=== PATIENT | female | born 1950 | race American Indian/Alaskan Native ===

== ENCOUNTER 2019-08-10 18:06 | Inpatient (IN) | payer MEDICARE ==
--- NOTE | 2019-08-10 18:48 | Event Note ---
Date of service: 08/10/19 Face to Face: 68-year-old female, not known to this provider previously, history of polio, chronic bilateral lower extremity debility, presented with complaint of headache, which she has difficulty qualifying and describing, reported left arm weakness. Patient thinks her left arm weakness started at 12:00 PM yesterday. She is not sure. The patient is a poor historian. The patient does have some demonstrable left arm weakness. Patient is not a TPA candidate as she presents more than 4.5 hours after symptom onset. The patient does not candidate for emergent endovascular intervention as she presents more than 24 hours after symptom onset. Plan is to treat her symptoms, obtain basic screening laboratory studies, work patient up for stroke, evaluate for toxic metabolic infectious etiology, and admit to the medical service. Vital Signs 08/10/19 08/10/19 08/10/19 18:16 18:30 18:31 Temperature 98.5 F Pulse Rate 74 74 Respiratory 20 18 Rate Blood Pressure 186/79 182/85 Blood Pressure [Left] O2 Sat by Pulse 100 98 97 Oximetry 08/10/19 18:35 Temperature 98.5 F Pulse Rate 74 Respiratory 20 Rate Blood Pressure Blood Pressure 186/79 [Left] O2 Sat by Pulse 98 Oximetry
--- NOTE | 2019-08-10 19:11 | Emergency Department Report ---
ED Neuro Deficit HPI - General Chief Complaint: High BP Stated Complaint: HEADACHE Source: patient, family Mode of arrival: Stretcher Limitations: No Limitations - History of Present Illness Initial Comments: Patient is a 68-year-old -[place]aur[place] female with a history of poliomyelitis with resultant bilateral lower extremity deformity and weakness, and who uses a wheelchair to get around presents to the ED with complaint of acute onset persistence severe headache, left arm weakness, right-sided facial droop and numbness and elevated blood pressure for 24 hours. Patient states that she initially noticed that she was unable to lift her left upper extremity because of weakness and thereafter she was told by her neighbor's that "my face looked funny and deformed". Patient states that she was told that she was smiling when in isn't she knows she was not smiling. Patient states these symptoms have been persistent since then. Patient denies nausea, vomiting, chest pain, shortness of breath, dizziness, fever, chills, cough, speech changes, vision loss, urinary or bowel incontinence, dysphagia, dysphonia, abdominal pain, syncope, seizures, fall or loss of consciousness. Patient states that all these symptoms are new in office 24 hours. -: Sudden, hour(s) (>24) Location: right face (facial droop and numbness), left arm (weakness, unable to lift the left upper extremity) Presenting Symptoms: Present: Sudden, Severe Headache, Facial Droop/Numbness (right sided) History of same: No Place: home Severity: severe Quality: weak, numb, tingling, constant Improves With: none Worsens With: none On Anticoagulants: No Context: sudden onset Associated Symptoms: denies other symptoms, headaches. denies: confusion, chest pain, cough, diaphoresis, fever/chills, loss of appetite, malise, nausea/vomiting, vertigo, seizures, shortness of breath, syncope, weakness Treatments Prior to Arrival: none - Related Data Home Medications: Home Medications Medication Instructions Recorded Confirmed Last Taken Acetaminophen [Tylenol] 2 tab PO Q4HR PRN 08/10/19 08/10/19 Unknown Atorvastatin Calcium 20 mg PO HS 08/10/19 08/10/19 Unknown Diclofenac Sodium [Diclo Gel] 2 gram TRANSDERMA QID 08/10/19 08/10/19 Unknown Docusate Sodium [Colace CAP] 1 tab PO DAILY PRN 08/10/19 08/10/19 Unknown Fluticasone [Flonase] 1 spray INTRANASAL DAILY 08/10/19 08/10/19 Unknown Hydralazine HCl 50 mg PO Q12HR 08/10/19 08/10/19 Unknown Losartan Potassium 100 mg PO DAILY 08/10/19 08/10/19 Unknown Melatonin [Melatonin 10MG CAP] 10 mg PO HS PRN 08/10/19 08/10/19 Unknown Metoprolol [Lopressor] 25 mg PO Q12HR 08/10/19 08/10/19 Unknown NIFEdipine [Nifedipine ER] 1 tab PO HS 08/10/19 08/10/19 Unknown Oxybutynin [Ditropan] 5 mg PO DAILY 08/10/19 08/10/19 Unknown Pantoprazole Sodium [Protonix] 40 mg PO DAILY 08/10/19 08/10/19 Unknown Polyethylene Glycol 3350 [Miralax 17 gm PO DAILY 08/10/19 08/10/19 Unknown 3350] Sennosides/Docusate Sodium [Senna 8.6 mg PO DAILY 08/10/19 08/10/19 Unknown Plus Tablet] Thiamine [Vitamin B-1] 1 tab PO DAILY 08/10/19 08/10/19 Unknown cloNIDine [Catapres] 0.1 mg PO Q8HR PRN 08/10/19 08/10/19 Unknown traMADol [Ultram] 50 mg PO Q6HR PRN 08/10/19 08/10/19 Unknown Allergies/Adverse Reactions: Allergies Allergy/AdvReac Type Severity Reaction Status Date / Time No Known Allergies Allergy Unverified 08/10/19 18:23 ED Review of Systems ROS: Stated complaint: HEADACHE Other details as noted in HPI Constitutional: malaise, weakness. denies: chills, fever Eyes: denies: eye pain, eye discharge, vision change ENT: other (right facial droop and numbness). denies: ear pain, throat pain Respiratory: denies: cough, shortness of breath, wheezing Cardiovascular: denies: chest pain, palpitations, dyspnea on exertion, edema, syncope, paroxysmal nocturnal dyspnea Endocrine: no symptoms reported. denies: excessive sweating, flushing, intolerance to cold, intolerance to heat Gastrointestinal: denies: abdominal pain, nausea, vomiting, diarrhea, hematochezia Genitourinary: denies: urgency, dysuria, discharge Musculoskeletal: denies: back pain, joint swelling, arthralgia Skin: denies: rash, lesions Neurological: headache, weakness (left upper extremity), numbness (right facial droop and numbness), abnormal gait (Baseline chronic bilateral lower extremity weakness and deformity from chronic poliomyelitis). denies: paresthesias, confusion Psychiatric: denies: anxiety, depression Hematological/Lymphatic: denies: easy bleeding, easy bruising ED Past Medical Hx - Past Medical History Previous Medical History?: Yes Hx Hypertension: Yes Hx Diabetes: Yes Additional medical history: Poliomyelitis, resultant bilateral lower extremity weakness and deformity - Social History Smoking Status: Never Smoker Substance Use Type: None - Medications Home Medications: Home Medications Medication Instructions Recorded Confirmed Last Taken Type Acetaminophen [Tylenol] 2 tab PO Q4HR PRN 08/10/19 08/10/19 Unknown History Atorvastatin Calcium 20 mg PO HS 08/10/19 08/10/19 Unknown History Diclofenac Sodium [Diclo Gel] 2 gram TRANSDERMA QID 08/10/19 08/10/19 Unknown History Docusate Sodium [Colace CAP] 1 tab PO DAILY PRN 08/10/19 08/10/19 Unknown History Fluticasone [Flonase] 1 spray INTRANASAL DAILY 08/10/19 08/10/19 Unknown History Hydralazine HCl 50 mg PO Q12HR 08/10/19 08/10/19 Unknown History Losartan Potassium 100 mg PO DAILY 08/10/19 08/10/19 Unknown History Melatonin [Melatonin 10MG CAP] 10 mg PO HS PRN 08/10/19 08/10/19 Unknown History Metoprolol [Lopressor] 25 mg PO Q12HR 08/10/19 08/10/19 Unknown History NIFEdipine [Nifedipine ER] 1 tab PO HS 08/10/19 08/10/19 Unknown History Oxybutynin [Ditropan] 5 mg PO DAILY 08/10/19 08/10/19 Unknown History Pantoprazole Sodium [Protonix] 40 mg PO DAILY 08/10/19 08/10/19 Unknown History Polyethylene Glycol 3350 [Miralax 17 gm PO DAILY 08/10/19 08/10/19 Unknown History 3350] Sennosides/Docusate Sodium [Senna 8.6 mg PO DAILY 08/10/19 08/10/19 Unknown History Plus Tablet] Thiamine [Vitamin B-1] 1 tab PO DAILY 08/10/19 08/10/19 Unknown History cloNIDine [Catapres] 0.1 mg PO Q8HR PRN 08/10/19 08/10/19 Unknown History traMADol [Ultram] 50 mg PO Q6HR PRN 08/10/19 08/10/19 Unknown History ED Neuro Physical Exam - General Limitations: No Limitations General appearance: alert, in no apparent distress Suspected Stroke: Yes - Head Head exam: Present: atraumatic, normocephalic, normal inspection - Eye Eye exam: Present: normal appearance, PERRL, EOMI Pupils: Present: normal accommodation - ENT ENT exam: Present: normal exam, normal orophraynx, mucous membranes moist, TM's normal bilaterally, normal external ear exam, other (right facial droop with facial expression) - Neck Neck exam: Present: normal inspection, full ROM. Absent: meningismus, thyromegaly - Respiratory Respiratory exam: Present: normal lung sounds bilaterally. Absent: respiratory distress, wheezes, rales, chest wall tenderness, accessory muscle use, decreased breath sounds - Cardiovascular Cardiovascular Exam: Present: regular rate, normal rhythm, normal heart sounds. Absent: systolic murmur, diastolic murmur, rubs, gallop - GI/Abdominal GI/Abdominal exam: Present: soft, normal bowel sounds. Absent: tenderness, hyperactive bowel sounds - Extremities Exam Extremities exam: Present: normal inspection, tenderness, normal capillary refill, other (Left upper extremity weakness with tenderness) - Back Exam Back exam: Present: normal inspection, full ROM - Neurological Exam Neurological exam: Present: alert, oriented X3, CN II-XII intact (except for right facial droop ), other (Gait and reflexes not tested due to chronic baseline bilateral lower extremity weakness due to chronic poliomyelitis;) - NIHSS Assessment Interval: 24 hours post onset of symptoms +-20 minutes 1a. Level of Consciousness: alert/keenly responsive 1b. LOC Questions: answers both correctly 1c. LOC Commands: performs tasks correctly 2. Best Gaze: normal 3. Visual: no visual loss 4. Facial Palsy: partial paralysis 5b. Motor Arm Right: no drift 5a. Motor Arm Left: no gravity effort 6a. Motor Leg Left: no movement (Baseline chronic leg weakness from poliomyelitis) 6b. Motor Leg Right: no movement (Baseline chronic leg weakness from poliomyelitis) 7. Limb Ataxia: present 2 limbs (Bilateral Lower extremity, chronic due to Poliomyelitis) 8. Sensory: normal 9. Best Language: no aphasia 10. Dysarthria: normal 11. Extinction/Inattention: no abnormality Total Score: 15 Stroke Severity: Moderate Stroke - Psychiatric Psychiatric exam: Present: normal affect, normal mood - Skin Skin exam: Present: warm, dry, intact, normal color. Absent: rash ED Course Vital Signs 08/10/19 08/10/19 08/10/19 18:16 18:30 18:31 Temperature 98.5 F Pulse Rate 74 74 Respiratory 20 18 Rate Blood Pressure 186/79 182/85 Blood Pressure [Left] O2 Sat by Pulse 100 98 97 Oximetry 08/10/19 08/10/19 08/10/19 18:35 19:01 19:42 Temperature 98.5 F 98.2 F Pulse Rate 74 82 58 L Respiratory 20 22 16 Rate Blood Pressure 189/79 Blood Pressure 186/79 172/69 [Left] O2 Sat by Pulse 98 96 100 Oximetry 08/10/19 08/10/19 08/10/19 20:01 20:24 21:00 Temperature Pulse Rate 59 L 66 Respiratory 14 16 19 Rate Blood Pressure 154/46 156/67 Blood Pressure [Left] O2 Sat by Pulse 97 98 Oximetry 08/10/19 21:24 Temperature Pulse Rate Respiratory 16 Rate Blood Pressure Blood Pressure [Left] O2 Sat by Pulse Oximetry - Reevaluation(s) Reevaluation #1: 08/10/19 22:16 This is a 68-year-old -[place] female with a history of chronic poliomyelitis resulting in bilateral lower extremity weakness and hypertension who presented to the ED with right-facial droop and tingling with left arm weakness follow-up 24 hours. In the ED, patient is alert and oriented 3, and is not in distress but hypertensive in triage. Patient was worked up for stroke this of the presentation. Asians case was discussed with the ED attending physician Dr. Cooper who also evaluated the patient and agree with the plan of care. The patient's case was discussed with the neurologist production leader Dr. Cj Valle was able to the patient and recommended that since the patient is >24 hours since last well, she is outside the window for tPA, therefore not a tPA candidate. He recommended admission for further workup of stroke including MRI. I discussed the patient's case with the hospitalist physician production leader Dr. Goodwin who admitted the patient to the hospital. 08/10/19 22:21 08/10/19 22:23 08/10/19 22:42 - Lab Data Result diagrams: 08/10/19 21:12 08/10/19 21:12 Lab Results 08/10/19 08/10/19 08/10/19 Range/Units 19:31 19:36 21:12 WBC 4.9 (4.5-11.0) K/mm3 RBC 3.67 (3.65-5.03) M/mm3 Hgb 10.6 (10.1-14.3) gm/dl Hct 32.6 (30.3-42.9) % MCV 89 (79-97) fl MCH 29 (28-32) pg MCHC 32 (30-34) % RDW 13.9 (13.2-15.2) % Plt Count 219 (140-440) K/mm3 Lymph % (Auto) 34.2 (13.4-35.0) % [place] % (Auto) 11.4 H (0.0-7.3) % Eos % (Auto) 5.3 H (0.0-4.3) % Baso % (Auto) 2.1 H (0.0-1.8) % Lymph # 1.7 (1.2-5.4) K/mm3 [place]atte # 0.6 (0.0-0.8) K/mm3 Eos # 0.3 (0.0-0.4) K/mm3 Baso # 0.1 (0.0-0.1) K/mm3 Seg Neutrophils % 47.0 (40.0-70.0) % Seg Neutrophils # 2.3 (1.8-7.7) K/mm3 Sodium (137-145) mmol/L Potassium (3.6-5.0) mmol/L Chloride (98-107) mmol/L Carbon Dioxide (22-30) mmol/L Anion Gap mmol/L BUN (7-17) mg/dL Creatinine (0.7-1.2) mg/dL Estimated GFR ml/min BUN/Creatinine Ratio % Glucose (65-100) mg/dL POC Glucose 118 H (70-105) Calcium (8.4-10.2) mg/dL Magnesium (1.7-2.3) mg/dL Total Bilirubin (0.1-1.2) mg/dL AST (5-40) units/L ALT (7-56) units/L Alkaline Phosphatase (35-129) units/L CK-MB (CK-2) (0.0-4.0) ng/mL Troponin T (0.00-0.029) ng/mL Total Protein (6.3-8.2) g/dL Albumin (3.9-5) g/dL Albumin/Globulin Ratio % TSH (0.270-4.200) mlU/mL Urine Color Yellow (Yellow) Urine Turbidity Clear (Clear) Urine pH 5.0 (5.0-7.0) Ur Specific [place] 1.014 (1.003-1.030) Urine Protein <15 mg/dl (Negative) mg/dL Urine Glucose (UA) Neg (Negative) mg/dL Urine Ketones Neg (Negative) mg/dL Urine Blood Neg (Negative) Urine Nitrite Neg (Negative) Urine Bilirubin Neg (Negative) Urine Urobilinogen < 2.0 (<2.0) mg/dL Ur Leukocyte Esterase Neg (Negative) Urine WBC (Auto) < 1.0 (0.0-6.0) /HPF Urine RBC (Auto) 3.0 (0.0-6.0) /HPF U Epithel Cells (Auto) 2.0 (0-13.0) /HPF Urine Mucus Few /HPF Acetaminophen (10.0-30.0) ug/mL 08/10/19 08/10/19 08/10/19 Range/Units 21:12 21:12 21:12 WBC (4.5-11.0) K/mm3 RBC (3.65-5.03) M/mm3 Hgb (10.1-14.3) gm/dl Hct (30.3-42.9) % MCV (79-97) fl MCH (28-32) pg MCHC (30-34) % RDW (13.2-15.2) % Plt Count (140-440) K/mm3 Lymph % (Auto) (13.4-35.0) % [place] % (Auto) (0.0-7.3) % Eos % (Auto) (0.0-4.3) % Baso % (Auto) (0.0-1.8) % Lymph # (1.2-5.4) K/mm3 [place] # (0.0-0.8) K/mm3 Eos # (0.0-0.4) K/mm3 Baso # (0.0-0.1) K/mm3 Seg Neutrophils % (40.0-70.0) % Seg Neutrophils # (1.8-7.7) K/mm3 Sodium 143 (137-145) mmol/L Potassium 4.1 (3.6-5.0) mmol/L Chloride 109.1 H (98-107) mmol/L Carbon Dioxide 20 L (22-30) mmol/L Anion Gap 18 mmol/L BUN 23 H (7-17) mg/dL Creatinine 0.5 L (0.7-1.2) mg/dL Estimated GFR > 60 ml/min BUN/Creatinine Ratio 46 % Glucose 119 H (65-100) mg/dL POC Glucose (70-105) Calcium 8.7 (8.4-10.2) mg/dL Magnesium 2.10 (1.7-2.3) mg/dL Total Bilirubin 0.20 (0.1-1.2) mg/dL AST 18 (5-40) units/L ALT 13 (7-56) units/L Alkaline Phosphatase 82 (35-129) units/L CK-MB (CK-2) 2.4 (0.0-4.0) ng/mL Troponin T < 0.010 (0.00-0.029) ng/mL Total Protein 6.0 L (6.3-8.2) g/dL Albumin 3.6 L (3.9-5) g/dL Albumin/Globulin Ratio 1.5 % TSH 1.850 (0.270-4.200) mlU/mL Urine Color (Yellow) Urine Turbidity (Clear) Urine pH (5.0-7.0) Ur Specific [place] (1.003-1.030) Urine Protein (Negative) mg/dL Urine Glucose (UA) (Negative) mg/dL Urine Ketones (Negative) mg/dL Urine Blood (Negative) Urine Nitrite (Negative) Urine Bilirubin (Negative) Urine Urobilinogen (<2.0) mg/dL Ur Leukocyte Esterase (Negative) Urine WBC (Auto) (0.0-6.0) /HPF Urine RBC (Auto) (0.0-6.0) /HPF U Epithel Cells (Auto) (0-13.0) /HPF Urine Mucus /HPF Acetaminophen < 5.0 L (10.0-30.0) ug/mL - Radiology Data Radiology results: report reviewed, image reviewed Findings [facility] [address] [place] [address] XRay Report Signed Patient: CLAYTON VORA MR#: [id number] : 1950 Acct:[id number] Age/Sex: 68 / F ADM Date: 08/10/19 Loc: ED Attending Dr: Ordering Physician: YURY COOPER MD Date of Service: 08/10/19 Procedure(s): XR chest 1V ap Accession Number(s): [id number] cc: YURY COOPER MD Fluoro Time In Minutes: CHEST 1 VIEW 08/10/2019 6:55 PM INDICATION / CLINICAL INFORMATION: cva weakness. COMPARISON: None available. FINDINGS: SUPPORT DEVICES: None. HEART / MEDIASTINUM: Heart is upper normal size for AP portable technique. LUNGS / PLEURA: Marked elevation of the right hemidiaphragm with right lung base atelectasis. Upper right lung and left lung are essentially clear. No pneumothorax. ADDITIONAL FINDINGS: No significant additional findings. IMPRESSION: 1. Elevated right hemidiaphragm. No acute findings. Signer Name: Kade Zhong MD Signed: 08/10/2019 7:21 PM Workstation Name: [id number] Transcribed By: DT Dictated By: Marquis Zhong MD Electronically Authenticated By: Marquis Zhong MD Signed Date/Time: 08/10/191920 DD/ 19 TD/TT: Findings [facility] [address] [place] [id number] Cat Scan Report Signed Patient: CLAYTON VORA MR#: [id number] : 1950 Acct:[id number] Age/Sex: 68 / F ADM Date: 08/10/19 Loc: ED Attending Dr: Ordering Physician: YURY COOPER MD Date of Service: 08/10/19 Procedure(s): CT head/brain wo con Accession Number(s): [id number] cc: YURY COOPER MD Nonenhanced CT scan of the brain: INDICATION / CLINICAL INFORMATION: 68 years Female; HEADACHE, LT FACIAL DROOPING PER FAMILY. TECHNIQUE: Routine CT head without contrast. All CT scans at this location are performed using CT dose reduction for ALARA by means of automated exposure control. COMPARISON: None. FINDINGS: BRAIN / INTRACRANIAL CONTENTS: No acute hemorrhage, mass effect, midline shift, hydrocephalus, or acute, large territorial infarct. Chronic lacune is seen in the right caudate head and in the right thalamus. Lateral ventricles and third ventricle are generous, disproportionate to high convexity cortical sulci suggesting deep central involution. Temporal horn tips are dilated suggesting moderate volume loss in the medial temporal lobes. Dense dystrophic calcification is seen in the sylvian fissure laterally on the left side. In addition, multiple punctate areas of calcifications are seen in the subar achnoid space bilaterally. Though nonspecific, this could be calcified emboli. If there is history of trauma in the ischemic areas, neurocysticercosis is another consideration. No significant white matter abnormality. Volume loss is seen in the cerebellar vermis. Patchy areas such cerebral atrophy also seen. CRANIOCERVICAL JUNCTION: No significant abnormality. ORBITS: No significant abnormality of visualized orbits. SINUSES / MASTOIDS: No significant abnormality of the visualized paranasal sinuses or mastoid air cells. ADDITIONAL FINDINGS: None. IMPRESSION: I do not see CT findings to suggest acute parenchymal lesion However, densely calcified lesion is seen in the lateral aspect of left the sylvian fissure posteriorly. In addition, multiple focal areas of calcification seen in the subarachnoid space Calcified emboli Signer Name: Ronak Hamlin MD Signed: 08/10/2019 7:41 PM Workstation Name: [id number] Transcribed By: BS Dictated By: Ronak Alcantar MD Electronically Authenticated By: Ronak Alcantar MD Signed Date/Time: 08/10/191940 DD/ 22 TD/TT: - Medical Decision Making This is a 68-year-old -[place]aur[place] female with a history of chronic poliomyelitis resulting in bilateral lower extremity weakness and hypertension who presented to the ED with right-facial droop and tingling with left arm weakness follow-up 24 hours. In the ED, patient is alert and oriented 3, and is not in distress but hypertensive in triage. Patient was worked up for stroke this of the presentation. Asians case was discussed with the ED attending physician Dr. Cooper who also evaluated the patient and agree with the plan of care. The patient's case was discussed with the neurologist production leader Dr. Cj Valle was able to the patient and recommended that since the patient is >24 hours since last well, she is outside the window for tPA, therefore not a tPA candidate. He recommended admission for further workup of stroke including MRI. I discussed the patient's case with the hospitalist physician production leader Dr. Goodwin who admitted the patient to the hospital. 08/10/19 22:21 - Differential Diagnosis Suspected CVA; Hypertensive emergency; headache - Core Measures AMI Core Measures Followed: No Measure Exclusions: not indicated Door to CT Read: <90 minutes Door to CXR Read: < 90 minutes Door to Neurologist Consult: <90 min Door to Thrombolytics, if given: Not indicated - Thrombolytic Inclusion/Exclusion Thrombolytic Exclusion Criteria: Symptom Onset > 3 Hours Thrombolytic Inclusion Criteria: Negative CT Scan for ICH, Age 18 or Older, Glucose of 50-400mg/dl Thrombolytic Contraindications: Patient on Anticoagulants Critical care attestation.: If time is entered above; I have spent that time in minutes in the direct care of this critically ill patient, excluding procedure time. ED Disposition Clinical Impression: Suspected cerebrovascular accident (CVA), Hypertensive emergency Disposition: OP ADMIT IP TO THIS HOSP Is pt being admited?: Yes Does the pt Need Aspirin: Yes Condition: Stable Instructions: Hypertension (ED) Referrals: ROBER TAN MD [Primary Care Provider] - 3-5 Days Time of Disposition: 22:45 Print Language: MALAGASY
--- NOTE | 2019-08-10 19:25 | XRay Report ---
CHEST 1 VIEW 08/10/2019 6:55 PM INDICATION / CLINICAL INFORMATION: cva weakness. COMPARISON: None available. FINDINGS: SUPPORT DEVICES: None. HEART / MEDIASTINUM: Heart is upper normal size for AP portable technique. LUNGS / PLEURA: Marked elevation of the right hemidiaphragm with right lung base atelectasis. Upper r ight lung and left lung are essentially clear. No pneumothorax. ADDITIONAL FINDINGS: No significant additional findings. IMPRESSION: 1. Elevated right hemidiaphragm. No acute findings. Signer Name: Kade Zhong MD Signed: 08/10/2019 7:21 PM Workstation Name: [id number]
[2019-08-10] MEDS ORDERED: REGLAN IV ONE (19:32)
[2019-08-10] MEDS ORDERED: TYLENOL PO ONE (19:32)
--- NOTE | 2019-08-10 19:45 | Cat Scan Report ---
Nonenhanced CT scan of the brain: INDICATION / CLINICAL INFORMATION: 68 years Female; HEADACHE, LT FACIAL DROOPING PER FAMILY. TECHNIQUE: Routine CT head without contrast. All CT scans at this location are performed using CT dos e reduction for ALARA by means of automated exposure control. COMPARISON: None. FINDINGS: BRAIN / INTRACRANIAL CONTENTS: No acute hemorrhage, mass effect, midline shift, hydrocephalus, or acu te, large territorial infarct. Chronic lacune is seen in the right caudate head and in the right thal amus. Lateral ventricles and third ventricle are generous, disproportionate to high convexity cortica l sulci suggesting deep central involution. Temporal horn tips are dilated suggesting moderate volume loss in the medial temporal lobes. Dense dystrophic calcification is seen in the sylvian fissure laterally on the left side. In addition , multiple punctate areas of calcifications are seen in the subarachnoid space bilaterally. Though no nspecific, this could be calcified emboli. If there is history of trauma in the ischemic areas, neuro cysticercosis is another consideration. No significant white matter abnormality. Volume loss is seen in the cerebellar vermis. Patchy areas such cerebral atrophy also seen. CRANIOCERVICAL JUNCTION: No significant abnormality. ORBITS: No significant abnormality of visualized orbits. SINUSES / MASTOIDS: No significant abnormality of the visualized paranasal sinuses or mastoid air ellen ls. ADDITIONAL FINDINGS: None. IMPRESSION: I do not see CT findings to suggest acute parenchymal lesion However, densely calcified lesion is seen in the lateral aspect of left the sylvian fissure posterior ly. In addition, multiple focal areas of calcification seen in the subarachnoid space Calcified embol i Signer Name: Ronak Hamlin MD Signed: 08/10/2019 7:41 PM Workstation Name: [id number]
[2019-08-10 19:54] LABS: Bilirubin,Urine NEG (Negative); Blood,Urine NEG (Negative); Color,Urine Yellow (Yellow); Mucus,Urine FEW /HPF; Protein,Urine <15 mg/dL mg/dL (Negative); Urobilinogen,Urine < 2.0 mg/dL (<2.0); WBC,Urine < 1.0 /HPF (0.0-6.0)
--- NOTE | 2019-08-10 20:58 | Consultation ---
History of Present Illness Consult date: 08/10/19 Medications and Allergies Allergies Allergy/AdvReac Type Severity Reaction Status Date / Time No Known Allergies Allergy Unverified 08/10/19 18:23 Physical Examination - Vital Signs Vital Signs: Vital Signs Pulse Ox 100 08/10/19 18:16 - Assessment Assessment Interval: Baseline - Level of Consciousness 1a. Level of Consciousness: alert/keenly responsive - LOC Questions 1b. LOC Questions: answers 1 question correctly - LOC Command 1c. LOC Commands: performs tasks correctly - Best Gaze 2. Best Gaze: normal - Visual 3. Visual: no visual loss - Facial Palsy 4. Facial Palsy: unilateral complete paralysis - Motor Arm 5a. Motor Arm Left: some gravity effort 5b. Motor Arm Right: no drift - Motor Leg 6a. Motor Leg Left: no gravity effort 6b. Motor Leg Right: no gravity effort - Limb Ataxia 7. Limb Ataxia: absent - Sensory 8. Sensory: normal - Best Language 9. Best Language: no aphasia - Dysarthria 10. Dysarthria: normal - Extinction and Inattention 11. Extinction/Inattention: no abnormality - Scoring Total Score: 12 Stroke Severity: Moderate Stroke Results - Laboratory Findings Abnormal Lab Findings: Abnormal Labs 08/10/19 19:36 POC Glucose 118 H Assessment and Plan [facility] Consult Services Date of Service 08/10/2019 Impression: 1- history of polio with chronic bilateral leg weakness 2- acute left arm weakness concerning for Acute Ischemic Stroke Recommendations: Patient is not a tPA candidate Head CT did not show any acute hemorrhage. reviewed report (if available) and images Reason: _ last time known well>4.5 hours Patient is not a KHRIS candidate: _ last time known well>24 hours dysphagia screen ASA if no contraindications head of bed flat IV fluids NS Stroke work up with: noncontrast brain MRI, head and neck MRA (or CTA), 2D ECHO, lipid panel, HbA1c (Goal LDL<70, HbA1c<7) Physical Therapy/Occupational Therapy inpatient neurology consultation if available Inpatient stroke evaluation as per Neurology/ Internal Medicine Discussed with ED physician/medical staff Please contact [facility] Navigator to reach me if further quest ions/concerns arise. Reason for Neurology Consult: - History of Present Illness: - Patient is a(n) 68 years old female with history of polio (chronic bilateral leg weakness) presents with acute left arm weakness that started around 12:00 on 08/09/19 Diagnostic Testing: - Head CT: No acute Intracranial abnormality. Review of Systems: Constitutional: Negative except as documented in history of present illness. Eye: Negative except as documented in history of present illness. Ear/Nose/Mouth/Throat: Negative except as documented in history of present illness. Respiratory: Negative except as documented in history of present illness. Cardiovascular: Negative except as documented in history of present illness. Gastrointestinal: Negative except as documented in history of present illness. Musculoskeletal: Negative except as documented in history of present illness. Neurologic: Negative except as documented in history of present illness. Examination: NIHSS documented Medical Decision Making: - Extensive number of diagnosis or management options are considered above. - Extensive amount of complex data reviewed. - High risk of complication and/or morbidity or mortality are associated with differential diagnostic considerations above. - There may be uncertain outcome and increased probability of prolonged functional impairment or high probability of severe prolonged functional impairment associated with some of these differential diagnoses. Medical Data Reviewed: 1.Data reviewed include clinical labs, radiology,Medical Tests; 2.Tests results discussed w/performing or interpreting physician; 3.Obtaining/reviewing old medical records; 4.Obtaining case history from another source; 5.Independent review of image, tracing or specimen. When possible Patient/family were informed the Neurology Consult would happen via TeleHealth consult by way of interactive audio and video telecommunications and consented to receiving care in this manner.
[2019-08-10 21:39] LABS: Basophils # (Auto) 0.1 K/mm3 (0.0-0.1); Basophils % (Auto) 2.1 % (0.0-1.8); Eosinophils # (Auto) 0.3 K/mm3 (0.0-0.4); Eosinophils % (Auto) 5.3 % (0.0-4.3); Hematocrit 32.6 % (30.3-42.9); Hemoglobin 10.6 gm/dl (10.1-14.3); Lymphocytes # (Auto) 1.7 K/mm3 (1.2-5.4); Lymphocytes % (Auto) 34.2 % (13.4-35.0); Mean Corpuscular HGB Conc 32 % (30-34); Mean Corpuscular Volume 89 fl (79-97); Monocytes # (Auto) 0.6 K/mm3 (0.0-0.8); Monocytes % (Auto) 11.4 % (0.0-7.3); Platelet Count 219 K/mm3 (140-440); Red Blood Count 3.67 M/mm3 (3.65-5.03); Red Cell Distribution Width 13.9 % (13.2-15.2)
[2019-08-10 21:55] LABS: Creatine Kinase MB 2.4 ng/mL (0.0-4.0)
[2019-08-10 21:59] LABS: Alanine Aminotransferase 13 units/L (7-56); Albumin 3.6 g/dL (3.9-5); BUN/Creatinine Ratio 46; Blood Urea Nitrogen 23 mg/dL (7-17); Calcium 8.7 mg/dL (8.4-10.2); Hemolysis Index 4
[2019-08-10] MEDS ORDERED: BABY ASPIRIN PO ONE (22:11)
[2019-08-10 22:40] LABS: INR 1.03 (0.87-1.13)
[2019-08-10 22:41] LABS: Partial Thromboplastin Time 29.7 Sec. (24.2-36.6); Thrombin Time 16.6 Sec. (15.1-19.6)
--- NOTE | 2019-08-10 23:16 | History and Physical Report ---
History of Present Illness Date of examination: 08/10/19 History of present illness: 68-year-old woman with a history of hypertension, diabetes, polio with lower extremity deformity, comes emergency room because yesterday she had an occipital headache described as a dull pain which is now better and also complain of her mouth being twisted. She noticed that she developed left arm weakness one week ago eview Of Systems: Constitutional: no weight loss, fever, chills Ears, eyes, nose, mouth and throat: no nasal congestion, no nasal discharge, no sinus pressure, blurry vision, diplopia Neck: No neck pain or rigidity. Cardiovascular: No palpitations, chest pain Respiratory: No shortness of breath, cough Gastrointestinal: No hematochezia, abdominal pain Genitourinary : no dysuria, frequency , hematuria Musculoskeletal: no muscle ache , joint pain Integumentary: no rash, no pruritis Neurological: no parathesias, focal weakness Endocrine: no cold or heat intolerance, no polyuria or polydipsia Hematologic/Lymphatic: no easy bruising, no easy bleeding, no gland swelling Allergic/Immunologic: no urticaria, no angioedema. PAST MEDICAL HISTORY:hypertension, diabetes, polio with lower extremity deformity PAST SURGICAL HISTORY: cholecystectomy, surgery on legs FAMILY HISTORY:hypertension, diabetes SOCIAL HISTORY: Denies tobacco, drugs, alcohol Medications and Allergies Allergies Allergy/AdvReac Type Severity Reaction Status Date / Time No Known Allergies Allergy Verified 08/10/19 23:17 Home Medications Medication Instructions Recorded Confirmed Last Taken Type Acetaminophen [Tylenol] 2 tab PO Q4HR PRN 08/10/19 08/10/19 Unknown History Atorvastatin Calcium 20 mg PO HS 08/10/19 08/10/19 Unknown History Diclofenac Sodium [Diclo Gel] 2 gram TRANSDERMA QID 08/10/19 08/10/19 Unknown History Docusate Sodium [Colace CAP] 1 tab PO DAILY PRN 08/10/19 08/10/19 Unknown History Fluticasone [Flonase] 1 spray INTRANASAL DAILY 08/10/19 08/10/19 Unknown History Hydralazine HCl 50 mg PO Q12HR 08/10/19 08/10/19 Unknown History Losartan Potassium 100 mg PO DAILY 08/10/19 08/10/19 Unknown History Melatonin [Melatonin 10MG CAP] 10 mg PO HS PRN 08/10/19 08/10/19 Unknown History Metoprolol [Lopressor] 25 mg PO Q12HR 08/10/19 08/10/19 Unknown History NIFEdipine [Nifedipine ER] 1 tab PO HS 08/10/19 08/10/19 Unknown History Oxybutynin [Ditropan] 5 mg PO DAILY 08/10/19 08/10/19 Unknown History Pantoprazole Sodium [Protonix] 40 mg PO DAILY 08/10/19 08/10/19 Unknown History Polyethylene Glycol 3350 [Miralax 17 gm PO DAILY 08/10/19 08/10/19 Unknown History 3350] Sennosides/Docusate Sodium [Senna 8.6 mg PO DAILY 08/10/19 08/10/19 Unknown History Plus Tablet] Thiamine [Vitamin B-1] 1 tab PO DAILY 08/10/19 08/10/19 Unknown History cloNIDine [Catapres] 0.1 mg PO Q8HR PRN 08/10/19 08/10/19 Unknown History traMADol [Ultram] 50 mg PO Q6HR PRN 08/10/19 08/10/19 Unknown History Exam - Physical Exam Narrative exam: General Apperance: The patient sitting in bed no acute distress HEENT: Normocephalic, atraumatic. Pupils equally round and reactive to light, extraocular movement intact, and no sclericterus or JVD or thyromegaly or nodule. Neck supple, no carotid bruit, mucous membranes moist, no exudate or erythema Heart: S1-S2, regular is rhythm Lungs: Clear to auscultation bilaterally, breathing comfortable Abdomen: Positive bowel sounds, soft, nontender, nondistended, no organomegaly Extremities: No edema cyanosis clubbing Skin: no rash, nodule, warm and dry Neuro:CN 2 -12 intact, motor LUE 2/5, extremities difficult to assess, deformed, sensory intact, facial droop speech is fluent - Constitutional Vitals: Temp Pulse Resp BP Pulse Ox 98.2 F 66 16 156/67 98 08/10/19 19:42 08/10/19 21:00 08/10/19 21:24 08/10/19 21:00 08/10/19 21:00 Results - Labs CBC & Chem 7: 08/10/19 21:12 08/10/19 21:12 Labs: Abnormal lab results 08/10/19 08/10/19 08/10/19 Range/Units 19:36 21:12 21:12 [place] % (Auto) 11.4 H (0.0-7.3) % Eos % (Auto) 5.3 H (0.0-4.3) % Baso % (Auto) 2.1 H (0.0-1.8) % Chloride 109.1 H (98-107) mmol/L Carbon Dioxide 20 L (22-30) mmol/L BUN 23 H (7-17) mg/dL Creatinine 0.5 L (0.7-1.2) mg/dL Glucose 119 H (65-100) mg/dL POC Glucose 118 H (70-105) Total Protein 6.0 L (6.3-8.2) g/dL Albumin 3.6 L (3.9-5) g/dL Salicylates (2.8-20.0) mg/dL Acetaminophen (10.0-30.0) ug/mL 08/10/19 08/10/19 Range/Units 21:12 21:12 [place] % (Auto) (0.0-7.3) % Eos % (Auto) (0.0-4.3) % Baso % (Auto) (0.0-1.8) % Chloride (98-107) mmol/L Carbon Dioxide (22-30) mmol/L BUN (7-17) mg/dL Creatinine (0.7-1.2) mg/dL Glucose (65-100) mg/dL POC Glucose (70-105) Total Protein (6.3-8.2) g/dL Albumin (3.9-5) g/dL Salicylates < 0.3 L (2.8-20.0) mg/dL Acetaminophen < 5.0 L (10.0-30.0) ug/mL - Imaging and Cardiology Chest x-ray: report reviewed CT Scan - head: report reviewed Assessment and Plan Assessment Acute CVA Hypertension Diabetes Plan Admit to medicine Obtain MRI of the head and neck, echo Doing neuro checks, swallow screen [employer] Supervisor neurology, physical and occupational therapy Start aspirin, statin DVT prophylaxis and IV hydralazine as needed for blood pressure control
[2019-08-11] MEDS ORDERED: DULCOLAX PR PRN (00:27)
[2019-08-11] MEDS ORDERED: SODIUM CHLORIDE FLUSH SYRINGE 10 ML IV PRN (00:27)
[2019-08-11] MEDS ORDERED: MILK OF MAGNESIA PO PRN (00:27)
[2019-08-11] MEDS ORDERED: TYLENOL PO PRN (00:27)
[2019-08-11] MEDS ORDERED: ZOFRAN IV PRN (00:27)
[2019-08-11] MEDS ORDERED: COLACE PO PRN (04:09)
[2019-08-11] MEDS ORDERED: MIRALAX 3350 PO SCH (10:00)
[2019-08-11] MEDS ORDERED: NON-FORMULARY (Pantoprazole Sodium [Protonix] 40 MG) PO SCH (10:00)
[2019-08-11] MEDS ORDERED: SENOKOT S PO SCH (10:00)
--- NOTE | 2019-08-11 15:04 | Progress Note ---
Assessment and Plan Acute CVA, likely Hypertension, uncontrolled Diabetes type 2 h/o polio with b/l LE weakness - monitor at telemetry - Obtain MRI of the head and neck - refused today, rescheduled for tomorrow - 2d echo showed no PFO or reduced EF - cont neuro checks, passed the swallow screen - start on diet - Consulted neurology, physical and occupational therapy - Cont aspirin, statin, resume other home meds, hydralazine iv to keep SBP <180 - DVT prophylaxis with lovenox Brief History: 68-year-old woman with a history of hypertension, diabetes, polio with lower extremity deformity and paralysis on wheel chair, comes emergency room because yesterday she had an occipital headache described as a dull pain which is now be tter and also complain of her mouth being twisted. She noticed that she developed left arm weakness one week ago. Radiological data: Head CT: No acute Intracranial abnormality. Hospitalist Physical exam: GENERAL: elderly AAF lying on bed appeared to be in no discomfort. HEENT: Normocephalic. Atraumatic. No conjunctival congestion or icterus. Patient has moist mucous membranes. NECK: Supple. Trachea midline. CHEST/LUNGS: Clear to auscultated bilaterally, breathing nonlabored. No wheezes crackles or rhonchi. HEART/CARDIOVASCULAR: Regular in rate and rhythm. S1 and S2 positive. ABDOMEN: Abdomen is soft, nontender. Patient has normal bowel sounds. SKIN: There is no rash. Warm and dry. NEURO: LUE weakness. b/l LE paralysis/weakness. Follows command. MUSCULOSKELETAL: No joint effusion or tenderness. EXTRIMITY: No edema, no cyanosis or clubbing. PSYCH: Cooperative. Subjective Date of service: 08/11/19 Interval history: Patient seen and examined. Medical records and medication list reviewed. No acute event overnight noted by the RN. Patient denies any chest pain or difficulty breathing. Patient is tolerating diet. Discussed plan of care at bedside with patient. She refused MRI brain today, neuro eval pending Objective - Constitutional Vitals: Vital Signs - 12hr 08/11/19 08/11/19 08/11/19 05:04 07:42 11:35 Temperature 97.5 F L 97.9 F Pulse Rate 78 62 Respiratory 20 20 18 Rate Blood Pressure 135/66 158/65 Blood Pressure 130/62 [Left] O2 Sat by Pulse 95 100 Oximetry - Labs CBC & Chem 7: 08/10/19 21:12 08/10/19 21:12 Labs: Abnormal lab results 08/10/19 08/10/19 08/10/19 Range/Units 19:36 21:12 21:12 [place] % (Auto) 11.4 H (0.0-7.3) % Eos % (Auto) 5.3 H (0.0-4.3) % Baso % (Auto) 2.1 H (0.0-1.8) % Chloride 109.1 H (98-107) mmol/L Carbon Dioxide 20 L (22-30) mmol/L BUN 23 H (7-17) mg/dL Creatinine 0.5 L (0.7-1.2) mg/dL Glucose 119 H (65-100) mg/dL POC Glucose 118 H (70-105) Total Protein 6.0 L (6.3-8.2) g/dL Albumin 3.6 L (3.9-5) g/dL Salicylates (2.8-20.0) mg/dL Acetaminophen (10.0-30.0) ug/mL 08/10/19 08/10/19 Range/Units 21:12 21:12 [place] % (Auto) (0.0-7.3) % Eos % (Auto) (0.0-4.3) % Baso % (Auto) (0.0-1.8) % Chloride (98-107) mmol/L Carbon Dioxide (22-30) mmol/L BUN (7-17) mg/dL Creatinine (0.7-1.2) mg/dL Glucose (65-100) mg/dL POC Glucose (70-105) Total Protein (6.3-8.2) g/dL Albumin (3.9-5) g/dL Salicylates < 0.3 L (2.8-20.0) mg/dL Acetaminophen < 5.0 L (10.0-30.0) ug/mL
[2019-08-11] MEDS: ASPIRIN PO SCH (18:06)
[2019-08-11] MEDS: DITROPAN PO SCH (18:06)
[2019-08-11] MEDS: VITAMIN B-1 PO SCH (18:06)
[2019-08-11] MEDS: LOVENOX SUB-Q SCH (18:07)
[2019-08-11] MEDS: PROTONIX PO SCH (18:07)
[2019-08-11] MEDS ORDERED: PRAVACHOL PO SCH (22:00)
[2019-08-11] MEDS ORDERED: ATORVASTATIN CALCIUM 20 MG PO SCH (22:00)
[2019-08-12] MEDS: APRESOLINE IV PRN ×2 (05:08→17:20)
[2019-08-12 06:18] LABS: Chol/HDL Ratio 2.67 %
[2019-08-12] MEDS: ASPIRIN PO SCH (09:37)
[2019-08-12] MEDS: LOVENOX SUB-Q SCH (09:37)
[2019-08-12] MEDS: PROTONIX PO SCH (09:38)
[2019-08-12] MEDS: VITAMIN B-1 PO SCH (09:38)
--- NOTE | 2019-08-12 15:22 | Magnetic Resonance Report ---
MRI BRAIN WITHOUT CONTRAST INDICATION / CLINICAL INFORMATION: stroke. TECHNIQUE: Multiplanar, multisequence MR images of the brain were obtained. COMPARISON: None available. FINDINGS: BRAIN / INTRACRANIAL CONTENTS: There are scattered areas of acute infarction involving the right cere bral hemisphere most notably along the border zone vascular distribution. The largest focus is along the right precentral gyrus measuring 2.57 m in greatest transverse dimension. Smaller foci are seen m ore superiorly along the right frontal and parietal subcortical regions. On the FLAIR sequence, there are otherwise a scattered small hyperintense foci of the cerebral white matter most consistent with microvascular angiopathy at. There are old small lacunar infarcts involvi ng the head of the right caudate and right thalamus. There is mild cerebral atrophy with associated p rominence of the ventricular system. No extra-axial fluid collections are identified. CRANIOCERVICAL JUNCTION: No significant abnormality. VASCULAR FLOW-VOIDS: The distal internal carotid arteries and vertebrobasilar system grossly demonstr ate appropriate signal voids. ORBITS: No significant abnormality of visualized orbits. SINUSES / MASTOIDS: No significant abnormality of the visualized paranasal sinuses or mastoid air ellen ls. ADDITIONAL FINDINGS: None. IMPRESSION: 1. There are scattered areas of acute infarction along the right cerebral border zone vascular distri bution as described. The largest focus is along the right precentral gyrus measuring 2.5 cm transvers [place]. Signer Name: Ronen Vazquez MD Signed: 08/12/2019 3:17 PM Workstation Name: [id number]
--- NOTE | 2019-08-12 15:28 | Magnetic Resonance Report ---
MRA head without contrast. CLINICAL HISTORY: Cerebrovascular accident, right-sided weakness FINDINGS: No previous exams available for comparison. The motion significant degrades the image quali ty. However, there is irregularity of the distal internal carotid arteries indicative of underlying a therosclerotic disease. There is no clear evidence of significant stenosis by NASCET criteria. Howeve r, there is a 2-of 3 of millimeter sacculation extending medially near the ophthalmic segment which m ay be exacerbated by the motion artifact. However, the findings may reflect a smaller 2 to 3 mm aneur ysm. There is irregularity of the left MCA trifurcation of vessels also indicative of underlying atheroscl erotic disease with mild narrowing. Additionally, there is irregularity of the P2 segment of the left [employer] with mild to moderate segmental narrowing at. There is mild hypoplasia the distal left vertebral artery. IMPRESSION: The study is limited by motion. However, there is diffuse irregularity of the intracranial vessels in dicative of atherosclerotic disease as detailed above. The findings are suggestive of a small 2-3 oh millimeter left periophthalmic aneurysm as detailed abo ve at. However, the findings may be exacerbated by the degree of motion and follow-up CTA of the head may be considered to further characterize of this finding. Signer Name: Ronen Vazquez MD Signed: 08/12/2019 3:23 PM Workstation Name: [id number]
--- NOTE | 2019-08-12 16:07 | Consultation ---
History of Present Illness Consult date: 08/12/19 History of present illness: I went over the MRI of the brain and there is acute ischemic stroke of the right hemispher tjis infarct id ischemic the small ophth aneurysm will be looked into I have dictated a full note on patient treatment of the stroke is medical Medications and Allergies Allergies Allergy/AdvReac Type Severity Reaction Status Date / Time No Known Allergies Allergy Verified 08/10/19 23:17 Home Medications Medication Instructions Recorded Confirmed Last Taken Type Acetaminophen [Tylenol] 2 tab PO Q4HR PRN 08/10/19 08/10/19 Unknown History Atorvastatin Calcium 20 mg PO HS 08/10/19 08/10/19 Unknown History Diclofenac Sodium [Diclo Gel] 2 gram TRANSDERMA QID 08/10/19 08/10/19 Unknown History Docusate Sodium [Colace CAP] 1 tab PO DAILY PRN 08/10/19 08/10/19 Unknown History Fluticasone [Flonase] 1 spray INTRANASAL DAILY 08/10/19 08/10/19 Unknown History Hydralazine HCl 50 mg PO Q12HR 08/10/19 08/10/19 Unknown History Losartan Potassium 100 mg PO DAILY 08/10/19 08/10/19 Unknown History Melatonin [Melatonin 10MG CAP] 10 mg PO HS PRN 08/10/19 08/10/19 Unknown History Metoprolol [Lopressor] 25 mg PO Q12HR 08/10/19 08/10/19 Unknown History NIFEdipine [Nifedipine ER] 1 tab PO HS 08/10/19 08/10/19 Unknown History Oxybutynin [Ditropan] 5 mg PO DAILY 08/10/19 08/10/19 Unknown History Pantoprazole Sodium [Protonix] 40 mg PO DAILY 08/10/19 08/10/19 Unknown History Polyethylene Glycol 3350 [Miralax 17 gm PO DAILY 08/10/19 08/10/19 Unknown History 3350] Sennosides/Docusate Sodium [Senna 8.6 mg PO DAILY 08/10/19 08/10/19 Unknown History Plus Tablet] Thiamine [Vitamin B-1] 1 tab PO DAILY 08/10/19 08/10/19 Unknown History cloNIDine [Catapres] 0.1 mg PO Q8HR PRN 08/10/19 08/10/19 Unknown History traMADol [Ultram] 50 mg PO Q6HR PRN 08/10/19 08/10/19 Unknown History Active Meds: Active Medications Acetaminophen (Tylenol) 650 mg PO Q4H PRN PRN Reason: Pain, Mild (1-3) Aspirin (Aspirin) 325 mg PO QDAY [facility] Last Admin: 08/12/19 09:37 Dose: 325 mg Documented by: Atorvastatin Calcium (Lipitor) 20 mg PO QHS [facility] Last Admin: 08/11/19 22:18 Dose: 20 mg Documented by: Bisacodyl (Dulcolax) 10 mg OR QDAY PRN PRN Reason: Constipation Docusate Sodium (Colace) 100 mg PO DAILY PRN PRN Reason: Constipation Enoxaparin Sodium (Lovenox) 30 mg SUB-Q QDAY [facility] Last Admin: 08/12/19 09:37 Dose: 30 mg Documented by: Hydralazine HCl (Apresoline) 5 mg IV Q4HR PRN PRN Reason: Hypotension Last Admin: 08/12/19 05:08 Dose: 5 mg Documented by: Magnesium Hydroxide (Milk Of Magnesia) 30 ml PO Q4H PRN PRN Reason: Constipation Ondansetron HCl (Zofran) 4 mg IV Q8H PRN PRN Reason: Nausea And Vomiting Oxybutynin Chloride (Ditropan) 5 mg PO DAILY [facility] Last Admin: 08/11/19 18:06 Dose: 5 mg Documented by: Pantoprazole Sodium (Protonix) 40 mg PO DAILY [facility] Last Admin: 08/12/19 09:38 Dose: 40 mg Documented by: Polyethylene Glycol (Miralax 3350) 17 gm PO DAILY [facility] Last Admin: 08/12/19 09:38 Dose: Not Given Documented by: Senna/Docusate Sodium (Senokot S) 1 tab PO DAILY [facility] Last Admin: 08/12/19 09:37 Dose: 1 tab Documented by: Sodium Chloride (Sodium Chloride Flush Syringe 10 Ml) 10 ml IV PRN PRN PRN Reason: LINE FLUSH Thiamine HCl (Vitamin B-1) 100 mg PO DAILY [facility] Last Admin: 08/12/19 09:38 Dose: 100 mg Documented by: Physical Examination - Vital Signs Vital Signs: Vital Signs Pulse Ox 100 08/10/19 18:16 Results - Laboratory Findings CBC and BMP: 08/10/19 21:12 08/10/19 21:12 Abnormal Lab Findings: Abnormal Labs 08/10/19 08/10/19 08/10/19 19:36 21:12 21:12 [place] % (Auto) 11.4 H Eos % (Auto) 5.3 H Baso % (Auto) 2.1 H Chloride 109.1 H Carbon Dioxide 20 L BUN 23 H Creatinine 0.5 L Glucose 119 H POC Glucose 118 H Total Protein 6.0 L Albumin 3.6 L Salicylates Acetaminophen 08/10/19 08/10/19 21:12 21:12 [place] % (Auto) Eos % (Auto) Baso % (Auto) Chloride Carbon Dioxide BUN Creatinine Glucose POC Glucose Total Protein Albumin Salicylates < 0.3 L Acetaminophen < 5.0 L
[2019-08-12] MEDS ORDERED: CATAPRES PO PRN (16:14)
[2019-08-12] MEDS ORDERED: ULTRAM PO PRN (16:14)
[2019-08-12] MEDS ORDERED: MELATONIN 10 MG PO PRN (16:14)
[2019-08-12] MEDS ORDERED: NON-FORMULARY (Losartan Potassium [Losartan Potassium] 100 MG) PO SCH (16:15)
[2019-08-12] MEDS ORDERED: MELATONIN PO PRN (16:29)
[2019-08-12] MEDS ORDERED: COZAAR PO SCH (16:40)
--- NOTE | 2019-08-12 16:49 | Discharge Summary ---
Providers - Providers Date of Admission: 08/10/19 23:15 Date of discharge: 08/12/19 Attending physician: DELLA PRINCE 08/11/19 Consult to Physician [CONS] Routine Comment: Consulting Provider: TED YOUNG Physician Instructions: Reason For Exam: cva 08/11/19 00:27 Occupational Therapy Evaluate and Treat [CONS] Routine Comment: Reason For Exam: Neuro deficits Physical Therapy Evaluation and Treat [CONS] Routine Comment: Reason For Exam: Neuro deficits Primary care physician: ABEL CHANG Hospitalization Condition: Stable Hospital course: 68-year-old woman with a history of hypertension, diabetes, polio with lower extremity deformity and paralysis on wheel chair, comes emergency room with complain of occipital headache, her mouth being twisted and left arm weakness. - Patient was admitted and monitored at telemetry - CT head showed no acute intracranial abnormality - Obtained MRI of the head and MRA of head and neck showed acute CVA on the right cerebral artery border zone distribution - MRA head and neck showed diffuse irregularity of the intracranial vessels indicative of atherosclerotic disease - 2d echo showed no PFO or no reduced EF - She was monitored with continuous neuro checks, passed the swallow screen - started on diet - Consulted neurology recommended to continue aspirin and statin, - Cont aspirin, statin, resumed other home meds, placed hydralazine iv to keep SBP <180 - Given DVT prophylaxis with lovenox - Patient was then discharge back to SNF in stable condition Radiological data: Head CT: No acute Intracranial abnormality. MRI brain: 1. There are scattered areas of acute infarction along the right cerebral border zone vascular distribution as described. The largest focus is along the right precentral gyrus measuring 2.5 cm transversely. MRI head neck: The study is limited by motion. However, there is diffuse irregularity of the intracranial vessels indicative of atherosclerotic disease as detailed above. 2d echo: EF 65-70% Discharge diagnosis: Acute CVA along the right cerebral border zone vascular distribution Hypertension, uncontrolled Diabetes type 2 h/o polio with b/l LE weakness Hospitalist Physical exam: GENERAL: elderly AAF lying on bed appeared to be in no discomfort. HEENT: Normocephalic. Atraumatic. No conjunctival congestion or icterus. Patient has moist mucous membranes. NECK: Supple. Trachea midline. CHEST/LUNGS: Clear to auscultated bilaterally, breathing nonlabored. No wheezes crackles or rhonchi. HEART/CARDIOVASCULAR: Regular in rate and rhythm. S1 and S2 positive. ABDOMEN: Abdomen is soft, nontender. Patient has normal bowel sounds. SKIN: There is no rash. Warm and dry. NEURO: LUE weakness. b/l LE paralysis/weakness. Follows command. MUSCULOSKELETAL: No joint effusion or tenderness. EXTRIMITY: No edema, no cyanosis or clubbing. PSYCH: Cooperative. 1 Disposition: DC/[place]-03 SNF [facility] CERT Time spent for discharge: 34 minutes Core Measure Documentation - Palliative Care Palliative Care/ Comfort Measures: Not Applicable - Core Measures Any of the following diagnoses?: stroke - Stroke Discharge Requirements Statin for LDL = or >70 mg/dl on DC: Yes Anticoag for atrial fib/atrial flutter: Not Applicable Antithrombotic for ischemic stroke: Yes Exam - Constitutional Vitals: Temp Pulse Resp BP Pulse Ox 98.5 F 84 18 164/72 99 08/12/19 07:52 08/12/19 05:08 08/12/19 07:52 08/12/19 07:52 08/12/19 03:52 Plan Activity: up only with assistance, fall precautions Weight Bearing Status: Non-Weight Bearing Diet: low fat, low salt Special Instructions: record daily BP diary Follow up with: ROBER TAN MD [Referring] - 3-5 Days KENNETH MÉNDEZ MD [Staff Physician] - 7 Days
[2019-08-12] MEDS ORDERED: FLONASE NS SCH (17:00)
[2019-08-12] MEDS: DITROPAN PO SCH (17:21)
[2019-08-12 19:25] VITALS: BP 168/83
[2019-08-12] MEDS ORDERED: APRESOLINE PO SCH (22:00)
[2019-08-12] MEDS ORDERED: NON-FORMULARY (Hydralazine Hcl [Hydralazine Hcl] 50 MG) PO SCH (22:00)
[2019-08-12] MEDS ORDERED: LOPRESSOR PO SCH (22:00)
--- NOTE | 2019-08-13 03:24 | Consultation ---
HISTORY OF PRESENT ILLNESS: This is a 68-year-old black female that presents to [facility] as an acute ischemic stroke. She presents with a left-side facial weakness. She has had a prior history of polio. She presents at this time with left arm, left face weakness. I reviewed her MRI scan of the brain. It does show evidence of a large infarct in the deep white matter of the left cerebral hemisphere. I have reviewed her tests including MRI/MRA. The MRI test that was reviewed shows a questionable area of a potential ophthalmic artery aneurysm. The MRI of the brain shows deep white matter infarct in the central white matter of the right cerebral hemisphere. I reviewed her laboratories, she has a hematocrit of 32.6. Her chloride is 109, creatinine 0.5, her glucose is 118. She has absence of movement of both lower extremities because of old case of polio. She is a senior care resident. PHYSICAL EXAMINATION: VITAL SIGNS: The patient reveals that she has a blood pressure of 191/85, pulse rate 86, respirations 18. NEUROLOGIC: Cranial nerves 2-12 shows central facial weakness on the left side, dense hemiparesis of the left arm, bilateral absence of movement in both extremities. Lower extremities have contractures bilaterally, very suggestive of motor neuron disease. The patient has a supple neck. She speaks well. She is fully oriented. She is appropriate. She does recognize she has left-sided weakness and has loss of sensation in the fourth finger of the left hand. IMPRESSION: This patient has an acute ischemic stroke in the deep white matter of the right cerebral hemisphere. There is some degree involving the right thalamus because of the sensory involvement. Reviewing his MRI scan of the brain, this clearly does not show a dense lesion in the middle cerebral artery or internal carotid artery. There is this questionable area noted on the MRA of a 1-2 mm left periophthalmic artery aneurysm and I will have to further review this and see if this is reliable finding. Further assessment will be recommended after that. JOB# [id number] EDUARD/JIL
[2019-08-13] MEDS ORDERED: COZAAR PO SCH (10:00)
== END 2019-08-12 19:32 | DRG 65 ==
LOC: ED 18:06 → 4A 23:15
PROVIDERS: ADMIT Internal Medicine; ATTEND Internal Medicine
DX: I63.9 Cerebral infarction, unspecified (principal); I16.1 Hypertensive emergency; I10 Essential (primary) hypertension; E11.8 Type 2 diabetes mellitus with unspecified complications; R29.810 Facial weakness; Z90.49 Acquired absence of other specified parts of digestive tract; Z82.49 Family history of ischemic heart disease and other diseases of the circulatory system; Z83.3 Family history of diabetes mellitus; Z79.899 Other long term (current) drug therapy
CPT/HCPCS: 36415; 70450; 70544; 70551; 71045; 80053; 80061; 80320; 81001; 82550; 82553; 82962; 83735; 84443; 84484; 85025; 85610; 85670; 85730; 93005; 93010; 93306; G0378; A9270-GY; G0480; J0360; J1650; J2765

== ENCOUNTER 2019-08-14 15:18 | Emergency (ER) | payer MEDICARE ==
--- NOTE | 2019-08-14 16:06 | Emergency Department Report ---
ED General Adult HPI - General Chief complaint: High BP Stated complaint: POSS HBP Time Seen by Provider: 08/14/19 16:04 Source: patient, EMS Mode of arrival: Stretcher Limitations: Physical Limitation - History of Present Illness Initial comments: 68-year-old female with a history of polio with lower extremity paralysis, a recent diagnosis of CVA on MRI on August 12 presents with a complaint of elevated blood pressure and generalized weakness. Patient initially presented to the emergency department with complaint of mouth being twisted and that her left arm had been weak for 1 week prior to her initial visit to the emergency department on August 10. Patient states she continues to have the weakness in her left arm that she had when she was evaluated emergency department. Patient had an MRI at that time which showed an acute CVA of the right cerebral border zone. Patient states that her headache has persisted. Patient denies any other complaints as far as weakness in her opposing upper extremity. Patient denies any slurred speech. Patient denies any recent falls. Patient states that she is not on aspirin therapy currently. - Related Data Home Medications Medication Instructions Recorded Confirmed Last Taken Acetaminophen [Acetaminophen TAB] 2 tab PO Q4HR PRN 08/10/19 08/10/19 Unknown Atorvastatin Calcium 20 mg PO HS 08/10/19 08/10/19 Unknown Diclofenac Sodium [Diclo Gel] 2 gram TRANSDERMA QID 08/10/19 08/10/19 Unknown Docusate Sodium [Colace CAP] 1 tab PO DAILY PRN 08/10/19 08/10/19 Unknown Fluticasone [Flonase] 1 spray INTRANASAL DAILY 08/10/19 08/10/19 Unknown Hydralazine HCl 50 mg PO Q12HR 08/10/19 08/10/19 Unknown Losartan Potassium 100 mg PO DAILY 08/10/19 08/10/19 Unknown Melatonin [Melatonin 10MG CAP] 10 mg PO HS PRN 08/10/19 08/10/19 Unknown Metoprolol [Lopressor TAB] 25 mg PO Q12HR 08/10/19 08/10/19 Unknown NIFEdipine [Nifedipine ER] 1 tab PO HS 08/10/19 08/10/19 Unknown Oxybutynin [Ditropan] 5 mg PO DAILY 08/10/19 08/10/19 Unknown Pantoprazole Sodium [Protonix] 40 mg PO DAILY 08/10/19 08/10/19 Unknown Polyethylene Glycol 3350 [Miralax 17 gm PO DAILY 08/10/19 08/10/19 Unknown 3350] Sennosides/Docusate Sodium [Senna 8.6 mg PO DAILY 08/10/19 08/10/19 Unknown Plus Tablet] Thiamine [Vitamin B-1] 1 tab PO DAILY 08/10/19 08/10/19 Unknown cloNIDine [Catapres] 0.1 mg PO Q8HR PRN 08/10/19 08/10/19 Unknown traMADol [Ultram 50 MG tab] 50 mg PO Q6HR PRN 08/10/19 08/10/19 Unknown Previous Rx's Medication Instructions Recorded Last Taken Type Aspirin 325 mg PO QDAY tablet 08/12/19 Unknown Rx Allergies Allergy/AdvReac Type Severity Reaction Status Date / Time No Known Allergies Allergy Verified 08/10/19 23:17 ED Review of Systems ROS: Stated complaint: POSS HBP Other details as noted in HPI Constitutional: denies: chills, fever Eyes: denies: eye pain, eye discharge, vision change ENT: denies: ear pain, throat pain Respiratory: denies: cough, shortness of breath, wheezing Cardiovascular: denies: chest pain, palpitations Endocrine: no symptoms reported Gastrointestinal: denies: abdominal pain, nausea, diarrhea Genitourinary: denies: urgency, dysuria, discharge Musculoskeletal: denies: back pain, joint swelling, arthralgia Skin: denies: rash, lesions Neurological: weakness Psychiatric: denies: anxiety, depression Hematological/Lymphatic: denies: easy bleeding, easy bruising ED Past Medical Hx - Past Medical History Previous Medical History?: Yes Hx Hypertension: Yes Hx Diabetes: Yes Hx GERD: Yes Additional medical history: Poliomyelitis, resultant bilateral lower extremity weakness and deformity - Surgical History Past Surgical History?: Yes Hx Cholecystectomy: Yes Additional Surgical History: both legs - Social History Smoking Status: Never Smoker Substance Use Type: None - Medications Home Medications: Home Medications Medication Instructions Recorded Confirmed Last Taken Type Acetaminophen [Acetaminophen TAB] 2 tab PO Q4HR PRN 08/10/19 08/10/19 Unknown History Atorvastatin Calcium 20 mg PO HS 08/10/19 08/10/19 Unknown History Diclofenac Sodium [Diclo Gel] 2 gram TRANSDERMA QID 08/10/19 08/10/19 Unknown History Docusate Sodium [Colace CAP] 1 tab PO DAILY PRN 08/10/19 08/10/19 Unknown History Fluticasone [Flonase] 1 spray INTRANASAL DAILY 08/10/19 08/10/19 Unknown History Hydralazine HCl 50 mg PO Q12HR 08/10/19 08/10/19 Unknown History Losartan Potassium 100 mg PO DAILY 08/10/19 08/10/19 Unknown History Melatonin [Melatonin 10MG CAP] 10 mg PO HS PRN 08/10/19 08/10/19 Unknown History Metoprolol [Lopressor TAB] 25 mg PO Q12HR 08/10/19 08/10/19 Unknown History NIFEdipine [Nifedipine ER] 1 tab PO HS 08/10/19 08/10/19 Unknown History Oxybutynin [Ditropan] 5 mg PO DAILY 08/10/19 08/10/19 Unknown History Pantoprazole Sodium [Protonix] 40 mg PO DAILY 08/10/19 08/10/19 Unknown History Polyethylene Glycol 3350 [Miralax 17 gm PO DAILY 08/10/19 08/10/19 Unknown History 3350] Sennosides/Docusate Sodium [Senna 8.6 mg PO DAILY 08/10/19 08/10/19 Unknown History Plus Tablet] Thiamine [Vitamin B-1] 1 tab PO DAILY 08/10/19 08/10/19 Unknown History cloNIDine [Catapres] 0.1 mg PO Q8HR PRN 08/10/19 08/10/19 Unknown History traMADol [Ultram 50 MG tab] 50 mg PO Q6HR PRN 08/10/19 08/10/19 Unknown History Aspirin 325 mg PO QDAY tablet 08/12/19 Unknown Rx ED Physical Exam - General Limitations: Physical Limitation General appearance: alert, in no apparent distress - Head Head exam: Present: atraumatic, normocephalic - Eye Eye exam: Present: normal appearance - ENT ENT exam: Present: mucous membranes moist - Neck Neck exam: Present: normal inspection - Respiratory Respiratory exam: Present: normal lung sounds bilaterally. Absent: respiratory distress - Cardiovascular Cardiovascular Exam: Present: regular rate, normal rhythm. Absent: systolic murmur, diastolic murmur, rubs, gallop - GI/Abdominal GI/Abdominal exam: Present: soft, normal bowel sounds - Extremities Exam Extremities exam: Present: normal inspection - Back Exam Back exam: Present: normal inspection - Neurological Exam Neurological exam: Present: alert, oriented X3, CN II-XII intact - Expanded Neurological Exam Expanded Motor strength exam: RUE: 5, LUE: 4 (able to lift left upper extremity up for five seconds; strength is diminshed in comparison to right upper extremity ( this was present on prior ER visit as well per patient)), RLE: 2/1 (history of polio), LLE: 2/1 (history of polio) - Psychiatric Psychiatric exam: Present: normal affect, normal mood - Skin Skin exam: Present: warm, dry, intact, normal color. Absent: rash ED Course Vital Signs 08/14/19 08/14/19 08/14/19 15:51 15:58 16:00 Temperature 98 F Pulse Rate 58 L Respiratory 18 Rate Blood Pressure 172/88 164/66 O2 Sat by Pulse 96 85 97 Oximetry ED Medical Decision Making - Lab Data Result diagrams: 08/14/19 16:32 08/14/19 16:32 - Medical Decision Making Patient is in no acute distress. CT also shows the presence of CVA which was noted to days ago on MRI on the right side. CT impression is a stable findings. Patient was asked again states she doesn't know why she was sent here but denies any acute complaints. Patient to be discharged to follow-up with neurology as an outpatient. There is no hemorrhagic transformation of the previously documented CVA. - Differential Diagnosis intracranial hemorrhage; dehydration; anemia; Critical care attestation.: If time is entered above; I have spent that time in minutes in the direct care of this critically ill patient, excluding procedure time. ED Disposition Clinical Impression: Hypertension, CVA, old, hemiparesis Disposition: DC-01 TO HOME OR SELFCARE Is pt being admited?: No Does the pt Need Aspirin: Yes Condition: Stable Instructions: Hypertension (ED), Self Care Measures After a Stroke (ED) Time of Disposition: 18:12 Print Language: MARTINIQUAIS
[2019-08-14 16:50] LABS: Hematocrit 36.5 % (30.3-42.9); Mean Corpuscular HGB Conc 33 % (30-34); Mean Corpuscular Volume 89 fl (79-97); Platelet Count 222 K/mm3 (140-440); Red Blood Count 4.12 M/mm3 (3.65-5.03); Red Cell Distribution Width 13.9 % (13.2-15.2)
[2019-08-14 17:08] LABS: Alanine Aminotransferase 15 units/L (7-56); Albumin 3.9 g/dL (3.9-5); BUN/Creatinine Ratio 38; Blood Urea Nitrogen 19 mg/dL (7-17); Calcium 9.2 mg/dL (8.4-10.2); Hemolysis Index 14
--- NOTE | 2019-08-14 17:53 | Cat Scan Report ---
CT HEAD WITHOUT CONTRAST INDICATION / CLINICAL INFORMATION: headache and dizziness. Follow-up, right middle cerebral artery infarction. TECHNIQUE: All CT scans at this location are performed using CT dose reduction for ALARA by means of automated e xposure control. COMPARISON: Head CT 08/10/2019 and MRI brain 08/12/2019. FINDINGS: HEMORRHAGE: No evidence of intracranial hemorrhage or extra-axial fluid collection. EXTRA-AXIAL SPACES: Cortical sulci, sylvian fissures and basilar cisterns have an unremarkable appear ance. VENTRICULAR SYSTEM: Third and lateral ventricles are mildly enlarged reflecting a degree of parenchym al volume loss which is greater than expected for age 68 years. CEREBRAL PARENCHYMA: Several areas area of decreased attenuation are observed in the right frontal lo be consistent with recently demonstrated right MCA infarction first well demonstrated on MRI brain da kelsi 08/12/2019. Several smaller foci of infarction in the right frontoparietal region are occult on C T imaging. There is evidence of remote small deep infarction involving head of caudate nucleus on the right and right thalamus. These are stable findings. An unusual calcification is observed in the reg ion of the left sylvian fissure. This could represent dystrophic calcification of the brain or leptom eninges of the left temporal operculum. Calcified neoplasm is considered likely, however, follow-up s tudy to include MRI brain with contrast is suggested. Persistent punctate calcifications are observed in the subarachnoid space unchanged from recent previous study. MIDLINE SHIFT OR HERNIATION: There is no mass effect. CEREBELLUM / BRAINSTEM: Brainstem and cerebellum have an unremarkable appearance. INTRACRANIAL VESSELS: Calcified atherosclerotic plaque is seen along the course of the cavernous segm ents of both internal carotid arteries as well as the distal vertebral arteries. ORBITS: visualized portions of the orbits have an unremarkable appearance. SOFT TISSUES of HEAD: No significant abnormality. CALVARIUM: Evaluation of bone windows reveals no abnormalities. PARANASAL SINUSES / MASTOID AIR CELLS: Paranasal sinuses are free from inflammatory mucosal disease. Mastoid air cells are normally pneumatized. IMPRESSION: 1. Several areas of decreased brain parenchymal attenuation are now observed in the right frontal lob e consistent with recently demonstrated right MCA infarctions. 2. Remote small deep infarction head of caudate nucleus on the right and right thalamus. 3. Unusual calcification along the surface of the left temporal operculum or in the adjacent sylvian fissure. Follow-up study to include MRI brain with intravenous contrast is suggested. Signer Name: Taurus Guardado MD Signed: 08/14/2019 5:49 PM Workstation Name: [id number]
[2019-08-14] MEDS ORDERED: ASPIRIN PO ONE (18:13)
[2019-08-14 19:02] VITALS: BP 158/63
== END 2019-08-14 19:17 | disposition home or self-care (01) ==
LOC: ED 15:18
DX: I10 Essential (primary) hypertension (principal); I69.359 Hemiplegia and hemiparesis following cerebral infarction affecting unspecified side; E11.9 Type 2 diabetes mellitus without complications; K21.9 Gastro-esophageal reflux disease without esophagitis; Z98.890 Other specified postprocedural states; Z90.49 Acquired absence of other specified parts of digestive tract; Z79.899 Other long term (current) drug therapy
CPT/HCPCS: 36415; 70450; 80053; 85027

== ENCOUNTER 2020-06-23 22:24 | Emergency (ER) | payer MEDICARE, OTHER ==
--- NOTE | 2020-06-23 23:12 | Emergency Department Report ---
ED Fall HPI - General Chief Complaint: Extremity Injury, Upper Stated Complaint: FALL INJURY Time Seen by Provider: 06/23/20 22:57 Source: EMS Mode of arrival: Stretcher Limitations: No Limitations - History of Present Illness Initial Comments: This is a 69-year-old female with history of hypertension, diabetes, polio, lower extremity paralysis, CVA who presents from [facility] long-term after a fall. She stated that she just slid down from a standing position on hard floor and soft thoughts. She was being assisted to the ground from a standing position. No head trauma. No loss of consciousness. She denies any pain at this time. Patient is bedbound. She does not ambulate. She denies pain in any other location. MD Complaint: fall -: This evening Fall From: standing When Fall Occurred: unsure Fall Witnessed: yes, by living facility s Place Fall Occurred: long-term/SNF Loss of Consciousness: none Prolonged Down Time?: no Symptoms Prior to Fall: none Location: other (Right elbow) Location - Extremities: Right: Elbow Severity: mild Context: tripped/slipped Associated Symptoms: denies - Related Data Home Medications Medication Instructions Recorded Confirmed Last Taken Acetaminophen [Acetaminophen TAB] 2 tab PO Q4HR PRN 08/10/19 08/10/19 Unknown Atorvastatin Calcium 20 mg PO HS 08/10/19 08/10/19 Unknown Diclofenac Sodium [Diclo Gel] 2 gram TRANSDERMA QID 08/10/19 08/10/19 Unknown Docusate Sodium [Colace CAP] 1 tab PO DAILY PRN 08/10/19 08/10/19 Unknown Fluticasone [Flonase] 1 spray INTRANASAL DAILY 08/10/19 08/10/19 Unknown Hydralazine HCl 50 mg PO Q12HR 08/10/19 08/10/19 Unknown Losartan Potassium 100 mg PO DAILY 08/10/19 08/10/19 Unknown Melatonin [Melatonin 10MG CAP] 10 mg PO HS PRN 08/10/19 08/10/19 Unknown Metoprolol [Lopressor TAB] 25 mg PO Q12HR 08/10/19 08/10/19 Unknown NIFEdipine [Nifedipine ER] 1 tab PO HS 08/10/19 08/10/19 Unknown Oxybutynin [Ditropan] 5 mg PO DAILY 08/10/19 08/10/19 Unknown Pantoprazole Sodium [Protonix] 40 mg PO DAILY 08/10/19 08/10/19 Unknown Sennosides/Docusate Sodium [Senna 8.6 mg PO DAILY 08/10/19 08/10/19 Unknown Plus Tablet] Thiamine [Vitamin B-1] 1 tab PO DAILY 08/10/19 08/10/19 Unknown cloNIDine [Catapres] 0.1 mg PO Q8HR PRN 08/10/19 08/10/19 Unknown polyethylene glycoL 3350 [Miralax 17 gm PO DAILY 08/10/19 08/10/19 Unknown 3350] traMADoL [Ultram 50 MG tab] 50 mg PO Q6HR PRN 08/10/19 08/10/19 Unknown Previous Rx's Medication Instructions Recorded Last Taken Type Aspirin 325 mg PO QDAY tablet 08/12/19 Unknown Rx Allergies Allergy/AdvReac Type Severity Reaction Status Date / Time No Known Allergies Allergy Verified 08/10/19 23:17 ED Review of Systems ROS: Stated complaint: FALL INJURY Other details as noted in HPI Comment: All other systems reviewed and negative Constitutional: denies: fever, malaise Respiratory: denies: cough, shortness of breath Cardiovascular: denies: chest pain Gastrointestinal: denies: abdominal pain, nausea, vomiting ED Past Medical Hx - Past Medical History Previous Medical History?: Yes Hx Hypertension: Yes Hx Diabetes: Yes Hx GERD: Yes Additional medical history: Poliomyelitis, resultant bilateral lower extremity weakness and deformity - Surgical History Past Surgical History?: Yes Hx Cholecystectomy: Yes Additional Surgical History: both legs - Social History Smoking Status: Never Smoker Substance Use Type: None - Medications Home Medications: Home Medications Medication Instructions Recorded Confirmed Last Taken Type Acetaminophen [Acetaminophen TAB] 2 tab PO Q4HR PRN 08/10/19 08/10/19 Unknown History Atorvastatin Calcium 20 mg PO HS 08/10/19 08/10/19 Unknown History Diclofenac Sodium [Diclo Gel] 2 gram TRANSDERMA QID 08/10/19 08/10/19 Unknown History Docusate Sodium [Colace CAP] 1 tab PO DAILY PRN 08/10/19 08/10/19 Unknown History Fluticasone [Flonase] 1 spray INTRANASAL DAILY 08/10/19 08/10/19 Unknown History Hydralazine HCl 50 mg PO Q12HR 08/10/19 08/10/19 Unknown History Losartan Potassium 100 mg PO DAILY 08/10/19 08/10/19 Unknown History Melatonin [Melatonin 10MG CAP] 10 mg PO HS PRN 08/10/19 08/10/19 Unknown History Metoprolol [Lopressor TAB] 25 mg PO Q12HR 08/10/19 08/10/19 Unknown History NIFEdipine [Nifedipine ER] 1 tab PO HS 08/10/19 08/10/19 Unknown History Oxybutynin [Ditropan] 5 mg PO DAILY 08/10/19 08/10/19 Unknown History Pantoprazole Sodium [Protonix] 40 mg PO DAILY 08/10/19 08/10/19 Unknown History Sennosides/Docusate Sodium [Senna 8.6 mg PO DAILY 08/10/19 08/10/19 Unknown History Plus Tablet] Thiamine [Vitamin B-1] 1 tab PO DAILY 08/10/19 08/10/19 Unknown History cloNIDine [Catapres] 0.1 mg PO Q8HR PRN 08/10/19 08/10/19 Unknown History polyethylene glycoL 3350 [Miralax 17 gm PO DAILY 08/10/19 08/10/19 Unknown History 3350] traMADoL [Ultram 50 MG tab] 50 mg PO Q6HR PRN 08/10/19 08/10/19 Unknown History Aspirin 325 mg PO QDAY tablet 08/12/19 Unknown Rx ED Physical Exam - General Limitations: Physical Limitation General appearance: alert, in no apparent distress, other (Appears frail, wearing diaper, answer all questions) - Head Head exam: Present: atraumatic, normocephalic - Eye Eye exam: Present: normal appearance - ENT ENT exam: Present: mucous membranes moist - Neck Neck exam: Present: normal inspection, full ROM - Respiratory Respiratory exam: Present: normal lung sounds bilaterally. Absent: respiratory distress, wheezes, rales, rhonchi - Cardiovascular Cardiovascular Exam: Present: regular rate, normal rhythm, normal heart sounds. Absent: systolic murmur, diastolic murmur, rubs, gallop - GI/Abdominal GI/Abdominal exam: Present: soft, normal bowel sounds. Absent: distended, tenderness, guarding, rebound - Extremities Exam Extremities exam: Present: other (No pedal edema) - Expanded Upper Extremity Exam Right Shoulder Exam: Present: normal inspection, full ROM Upper Arm exam: Present: normal inspection, full ROM Elbow exam: Present: normal inspection, full ROM. Absent: tenderness, swelling, abrasion, laceration, ecchymosis, deformity Forearm Wrist exam: Present: normal inspection, full ROM. Absent: tenderness, swelling, abrasion Hand Wrist exam: Present: normal inspection, full ROM - Neurological Exam Neurological exam: Present: alert, oriented X3 - Psychiatric Psychiatric exam: Present: normal affect, normal mood - Skin Skin exam: Present: warm, dry, intact, normal color. Absent: rash ED Course Vital Signs 06/23/20 22:55 Temperature 97.7 F Pulse Rate 60 Respiratory 15 Rate Blood Pressure 160/67 [Right] O2 Sat by Pulse 100 Oximetry ED Medical Decision Making - Radiology Data Radiology results: report reviewed Right elbow 3 views radiographs: No visible fracture or dislocation soft tissue fullness at the olecranon bursa representing hematoma or bursitis - Medical Decision Making Right elbow pain after minor slip and fall at a nursing home facility. No evidence of fracture or severe traumatic injury. No indication gouty arthropathy or septic arthritis of the right elbow. No head or neck trauma. Patient is currently not in pain she stated that "just let me sleep." Radiographs of the right elbow ruled out fracture dislocation subluxation. Critical care attestation.: If time is entered above; I have spent that time in minutes in the direct care of this critically ill patient, excluding procedure time. ED Disposition Clinical Impression: Contusion of elbow, right, Fall Disposition: DC/TX-70 ANOTHER TYPE HLTHCARE Is pt being admited?: No Does the pt Need Aspirin: No Condition: Stable
--- NOTE | 2020-06-23 23:40 | XRay Report ---
RIGHT ELBOW, 3 VIEWS INDICATION / CLINICAL INFORMATION: fall elbow pain. COMPARISON: None available. FINDINGS: No fracture or dislocation is noted. There is fullness in the region of the olecranon bursa. No hemar throsis noted, however. IMPRESSION: 1. No visible fracture or dislocation. 2. Soft tissue fullness in the olecranon bursa possibly representing hematoma and/or bursitis. Signer Name: Nallely Baca MD Signed: 06/23/2020 11:36 PM Workstation Name: [id number]
[2020-06-24 01:54] VITALS: BP 159/62
== END 2020-06-24 02:40 | disposition other institution (70) ==
LOC: ED 22:24
DX: S50.01XA Contusion of right elbow, initial encounter (principal); I10 Essential (primary) hypertension; E11.9 Type 2 diabetes mellitus without complications; M19.90 Unspecified osteoarthritis, unspecified site; F17.200 Nicotine dependence, unspecified, uncomplicated; Z79.899 Other long term (current) drug therapy; Z98.890 Other specified postprocedural states; W18.30XA Fall on same level, unspecified, initial encounter; Y93.89 Activity, other specified; Y92.89 Other specified places as the place of occurrence of the external cause; Y99.8 Other external cause status
CPT/HCPCS: 99283